=== PATIENT | female | born 1945 | race Caucasian/White ===

== ENCOUNTER 2019-11-09 18:34 | Day surgery (SDC) | payer MEDICARE, BC ==
[~2019-11-09 18:34] MED LIST: Ondansetron PF 4 MG/2 ML Vial ONE; PROPOFOL 200 MG/20 ML VIAL ONE; Succinylcholine Chloride 20 MG/ML 10 ml SYRINGE FS ONE
[2019-11-09] MEDS ORDERED: Midazolam HCl 5 mg/ml Vial ONE (19:57)
[2019-11-09] MEDS ORDERED: Fentanyl 100 MCG/2 ML VIAL ONE ×2 (19:57→21:36)
[2019-11-09] MEDS ORDERED: Propofol 1,000 MG/100 ML VIAL IV ONE (20:09)
[2019-11-09] MEDS ORDERED: PROPOFOL 0 ML ONE (20:10)
--- NOTE | 2019-11-09 20:21 | RAD ---
LEFT HUMERUS RADIOGRAPHS TWO VIEWS: 11/09/19 PROVIDED CLINICAL HISTORY: Pain status post injury. FINDINGS: The entirety of the left humerus is not included on the lateral image. There is evidence for anterior dislocation of the glenohumeral joint. Associated fracture is not definitely evident. Acromioclavicu lar joint osteoarthrosis changes are seen. IMPRESSION: Anterior dislocation of the left glenohumeral joint. POS: [facility]
--- NOTE | 2019-11-10 02:05 | HP ---
HISTORY OF PRESENT ILLNESS: Ms. Nuñez is a 74-year-old female, who was in the ER today, loss of balance, fell against the wall, arm was levered against the wall and dislocated her left shoulder. Attempts were made in the ER by Dr. Tovar and reduction was unsuccessful. The patient currently states her pain is 1/10. She is resting comfortably in bed. Her is at bedside. PAST MEDICAL HISTORY: Includes high blood pressure, reflux, history of breast cancer with mastectomy. PAST SURGICAL HISTORY: Includes a right mastectomy. ALLERGIES: NO KNOWN DRUG ALLERGIES. MEDICATIONS: Include losartan and hydrochlorothiazide, Ecotrin, Prilosec. SOCIAL HISTORY: The patient lives near the [facility]. She is retired. No illicit drug use, smoking, or alcohol. The patient's is at bedside. REVIEW OF SYSTEMS: Negative for fevers, chills, nausea, vomiting, diarrhea, chest pain, shortness of breath, hematemesis, hemoptysis, abdominal or bowel complaints, visual or auditory hallucinations, shortness of breath. PHYSICAL EXAMINATION: VITAL SIGNS: Patient's most recent vital signs; blood pressure 141/85, pulse 79 , respiratory rate 18, sats 99%. Pain 1/10. GENERAL: Alert and oriented female, in no acute distress. Resting comfortably in bed. EXTREMITIES: Left upper extremity, at her side, pain with rotation. The patient is neurovascularly intact distally, 2+ pulse. She will flex and extend all her fingers and wrist and flex and extend her elbow. DIAGNOSTIC DATA: Radiographs show an anterior dislocation with unsuccessful reductions. IMPRESSION: Left shoulder dislocation. ASSESSMENT AND PLAN: The patient will be taken to the OR, she will be closed reduced completed sedated and will be placed her in an abduction pillow. She will be sent home with followup in one week. The patient will take Tylenol, ibuprofen as needed for pain. I discussed the risks and benefits of the surgery, to include pain, scar, bleeding, infection, damage to vital structures, need for potential open reduction. I discussed this will likely be reduced very easily once she is asleep. The family understands this. She understands she could have a rotator cuff tear and require surgery in the future. We will attempt to period of conservative management. Job ID: [id number] MTDD
--- NOTE | 2019-11-10 02:55 | OP ---
DATE OF PROCEDURE: 11/09/2019 PREOPERATIVE DIAGNOSIS: Left shoulder dislocation, closed. No acute fracture. POSTOPERATIVE DIAGNOSIS: Left shoulder dislocation, closed. No acute fracture. PROCEDURE PERFORMED: Closed reduction of left shoulder dislocation. ANESTHESIA: The patient received a general endotracheal intubation. ESTIMATED BLOOD LOSS: None. TOURNIQUET TIME: None. ANTIBIOTICS: None. COMPLICATIONS: None. HISTORY OF PRESENT ILLNESS: Ms. Nuñez is a pleasant 74-year-old female with dislocated left shoulder, multiple ER attempts were performed that had gone unsuccessfully, therefore brought her to the OR for a complete control in case of potential opening. I discussed the risks and benefits of the surgery, pain, scar, bleeding, failure of repair, need for further surgery, continued pain despite surgery by reduction. She understood that she will be placed in a sling and likely would damage her in the future. She continues to have pain to evaluate for rotator cuff. She understood the risks and benefits and elected to proceed. DESCRIPTION OF PROCEDURE: Time-out was performed designating the patient's left upper extremity as the operative site based on site, consent, and markings. After the patient was intubated and relaxed, the patient's arm was flexed and abducted and she reduced instantaneously. The patient had good external rotation about 60 degrees and she came up to 130. She actually subluxed, put her back in, took pictures AP and a scapular Y showing reduced, placed in abduction pillow. The patient will be discharged home. Follow up in a week. She will move her elbow, wrist, and hand in the standard sling until I see her back. We will get preclinic x-rays. Job ID: [id number]
--- NOTE | 2019-11-10 07:29 | RAD ---
2 VIEWS LEFT SHOULDER: Date: 11/09/2019 PROVIDED CLINICAL HISTORY: Closed reduction. FINDINGS: Comparison made with humerus radiographs performed earlier same date. The glenohumeral relationship appears normal status post reduction. There is no evidence for fracture or other acute osseous abnormality. IMPRESSION: As above. POS: [facility]
== END 2019-11-09 23:56 | disposition home or self-care (01) ==
LOC: ERS 18:34 → SDC/OP 22:20
PROVIDERS: ATTEND Orthopaedic Surgery
PROC: 0RSKXZZ Reposition Left Shoulder Joint, External Approach (ICD-10-PCS; principal; 2019-11-09)
DX: S43.085A Other dislocation of left shoulder joint, initial encounter (principal); I10 Essential (primary) hypertension; K21.9 Gastro-esophageal reflux disease without esophagitis; E78.5 Hyperlipidemia, unspecified; E66.9 Obesity, unspecified; Z79.899 Other long term (current) drug therapy; W01.198A Fall on same level from slipping, tripping and stumbling with subsequent striking against other object, initial encounter
CPT/HCPCS: J2250; J2405; J2704; J3010

== ENCOUNTER 2019-12-20 10:45 | Outpatient (CLI) | payer MEDICARE, BC ==
--- NOTE | 2019-12-20 12:41 | MRI ---
MRI OF THE LEFT SHOULDER WITHOUT CONTRAST: INDICATION: History of left shoulder dislocation. COMPARISON: None. FINDINGS: There is massive rotator cuff tear involving the supraspinatus, infraspinatus, and subscapularis with retraction of the tendons to the level of the superior humeral head. There are some edematous smith es involving the posterior aspect of the humeral head. No Hill-Sachs deformity is evident. There is medial subluxation of the long-head of the biceps tendon. There is severe tendinosis of the long he ad of the biceps tendon. There is mild strain involving the humeral attachment to the anterior infer ior glenohumeral ligament. No definite full-thickness disruption is evident. The glenoid labrum selena ears intact. There is no definite full-thickness labral tear is grossly evident. Glenohumeral artic ular surface is normal-appearing. There is moderate muscular atrophy of the supraspinatus and mild m uscular atrophy of the subscapularis and infraspinatus. The teres minor remains intact. There is mi ld AC joint osteoarthrosis. IMPRESSION: 1. Massive rotator cuff tear with moderate supraspinatus and mild infraspinatus and subscapularis mu scular atrophy. Some mild contusion involving the humeral head. 2. Mild grade II sprain involving the humeral attachment of the anterior inferior glenohumeral ligam ent. 3. Acromioclavicular joint osteoarthrosis. POS: [facility]
== END 2019-12-20 10:46 | disposition home or self-care (01) ==
LOC: BICMRI 10:45
PROVIDERS: ATTEND Orthopaedic Surgery
DX: S43.005A Unspecified dislocation of left shoulder joint, initial encounter (principal); M19.012 Primary osteoarthritis, left shoulder; S43.492A Other sprain of left shoulder joint, initial encounter; S46.012A Strain of muscle(s) and tendon(s) of the rotator cuff of left shoulder, initial encounter; S40.012A Contusion of left shoulder, initial encounter; M62.512 Muscle wasting and atrophy, not elsewhere classified, left shoulder